=== PATIENT | male | born 1990 | race Two or more races ===

== ENCOUNTER 2021-09-06 19:52 | Emergency (ER) | payer SELFPAY ==
[~2021-09-06] VITALS: Ht 175.3 cm; Wt 92.5 kg
[2021-09-06 19:57] VITALS: BP 141/85
[2021-09-06] MEDS ORDERED: IBUPROFEN 800 MG TAB PO ONE (21:45)
== END 2021-09-06 22:58 | disposition left against medical advice (07) ==
LOC: EDBD 19:52 → ER 19:55
DX: M54.50 Low back pain, unspecified (principal); Z76.5 Malingerer [conscious simulation]